=== PATIENT | male | born 1985 | race Caucasian/White ===

== ENCOUNTER 2018-04-28 04:48 | Emergency (ER) | payer MEDICAID ==
[~2018-04-28] VITALS: Ht 185.4 cm; Wt 118.5 kg
[2018-04-28] MEDS ORDERED: BUPIVACAINE 0.25% ONE (05:11)
[2018-04-28] MEDS ORDERED: BUPIVACAINE 0.25% INFIL ONE (05:30)
[2018-04-28 08:05] VITALS: BP 148/94
== END 2018-04-28 08:11 | disposition home or self-care (01) ==
LOC: ED 08:09
DX: K08.89 Other specified disorders of teeth and supporting structures (principal)
CPT/HCPCS: 64400; 99284; J3490

== ENCOUNTER 2019-06-10 07:19 | Emergency (ER) | payer MEDICAID, OTHER ==
[~2019-06-10] VITALS: Ht 185.4 cm; Wt 133.0 kg
--- NOTE | 2019-06-10 08:07 | NUR ---
fell out of back of truck yesterday and c/o left rib pain from going over the side, especially when taking a breath in.
[2019-06-10 08:59] LABS: BASOPHILS # (AUTO) 0.02 x10^3/uL (0-0.1); BASOPHILS % (AUTO) 0 % (0-1); EOSINOPHILS # (AUTO) 0.11 x10^3/uL (0-0.4); EOSINOPHILS % (AUTO) 2 % (1-7); LYMPHOCYTES # (AUTO) 1.09 x10^3/uL (1-3.4); LYMPHOCYTES % (AUTO) 14 % (22-44); MD NO; MEAN CORPUSCULAR HGB CONC 34.1 g/dL (33.2-36.2); MEAN CORPUSCULAR VOLUME 90.7 fL (81-97); MEAN PLATELET VOLUME 7.1 fL (7.4-10.4); MONOCYTES # (AUTO) 0.81 x10^3/uL (0.2-0.8); MONOCYTES % (AUTO) 11 % (2-9); NEUTROPHILS # (AUTO) 5.64 x10^3/uL (1.8-6.8); NEUTROPHILS % (AUTO) 74 % (42-75); PLATELET COUNT 229 x10^3/uL (130-400); RED BLOOD COUNT 5.37 x10^6/uL (4.38-5.82); RED CELL DISTRIBUTION WIDTH 13.4 % (9.4-14.8)
[2019-06-10] MEDS ORDERED: HYDROmorphone 1 MG/ML, 1ML INJ IVPush PRN (09:00)
[2019-06-10] MEDS ORDERED: SODIUM CHLORIDE FLUSH 10ML SYR IVF ONE (09:00)
[2019-06-10] MEDS ORDERED: ONDANSETRON 2MG/ML, 2ML IVPush ONE (09:00)
[2019-06-10 09:07] LABS: ALBUMIN 3.7 g/dL (3.4-5.0); ANION GAP 4 mmol/L (5-15); CALCIUM 8.6 mg/dL (8.5-10.1); CHLORIDE 107 mmol/L (98-107); CREATININE 1.07 mg/dL (0.7-1.3)
[2019-06-10] MEDS ORDERED: ONDANSETRON 2MG/ML, 2ML ONE (09:19)
[2019-06-10] MEDS ORDERED: HYDROmorphone 1 MG/ML, 1ML VIAL ONE (09:19)
--- NOTE | 2019-06-10 09:25 | NUR ---
MEDICATED FOR LEFT SIDE PAIN AND TO CT
[2019-06-10] MEDS ORDERED: OMNIPAQUE 350 MG/ML, 100ML BOTTLE ONE (09:41)
--- NOTE | 2019-06-10 09:52 | NUR ---
ELEN RN: PT LYING COMFORTABLY ON GURNEY. NO COMPLAINTS OF PAIN OR DISCOMFORT AT THIS TIME. VS OBTAINED. VSS. CALL LIGHT WITHIN REACH. FAMILY AT BEDSIDE.
[2019-06-10 09:53] VITALS: BP 132/79
--- NOTE | 2019-06-10 10:42 | NUR ---
PT STATES PAIN / SINCE MEDICATED
--- NOTE | 2019-06-10 10:42 | NUR ---
PT PROVIDED INCENTIVER SPIROMETER WITH TEACHING
[2019-06-10] MEDS ORDERED: KETOROLAC 30 MG/1 ML ONE (10:51)
[2019-06-10] MEDS ORDERED: KETOROLAC 60 MG/2 ML IVPush ONE (11:00)
== END 2019-06-10 11:03 | disposition home or self-care (01) ==
LOC: ED 08:05
DX: G89.11 Acute pain due to trauma (principal); R07.89 Other chest pain; F17.200 Nicotine dependence, unspecified, uncomplicated; W06.XXXA Fall from bed, initial encounter; Y93.89 Activity, other specified; Y92.89 Other specified places as the place of occurrence of the external cause; Y99.8 Other external cause status
CPT/HCPCS: 36415; 71046; 74177; 80048; 82040; 85025; 96374; 96375; 99284; J1170; J1885; J2405; Q9967